=== PATIENT | female | born 1935 | race Caucasian/White ===

== ENCOUNTER 2016-10-21 18:46 | Emergency (ER) | payer OTHER ==
[~2016-10-21] VITALS: Ht 152.4 cm; Wt 115.8 kg
[~2016-10-21 18:46] MED LIST: ALEVE220 MG PO; CELECOXIB200 MG PO; CIPRO250 MG PO; COLCRYS0.6 MG PO; DOCUSATE SODIU100 MG PO; DOXYCYCLINE HY100 MG PO; FERROUS SULFAT325 MG PO; HYDROCODON-ACE1 EAC7 PO; LORTAB 5-325 M1 EACH PO; LOVENOX40 MG/0.4 SC; MECLIZINE HCL25 MG PO; MOTRIN600 MG PO; PAROXETINE HCL10 MG PO; PAXIL20 MG PO; SKELAXIN800 MG PO; SPIRONOLACTONE50 MG PO; VENTOLIN HFA18 GM IH
[2016-10-21] MEDS ORDERED: ACETAMINOPHEN500 MG PO (20:40)
[2016-10-21] MEDS ORDERED: MORPHINE SULFAT15 MG PO (20:40)
[2016-10-21 21:33] VITALS: BP 106/57
== END 2016-10-21 21:34 | disposition home or self-care (01) ==
LOC: EME 18:46
PROC: 2W3AX1Z Immobilization of Right Upper Arm using Splint (ICD-10-PCS; principal; 2016-10-21)
DX: S42.291A Other displaced fracture of upper end of right humerus, initial encounter for closed fracture (principal); W18.39XA Other fall on same level, initial encounter; W54.1XXA Struck by dog, initial encounter; G89.29 Other chronic pain; F32.9 Major depressive disorder, single episode, unspecified; G43.909 Migraine, unspecified, not intractable, without status migrainosus; K21.9 Gastro-esophageal reflux disease without esophagitis
CPT/HCPCS: 73030; 73060; 99281; 99285; J1885; J2270

== ENCOUNTER 2016-10-27 02:53 | Emergency (ER) | payer OTHER ==
[~2016-10-27] VITALS: Ht 152.4 cm; Wt 113.8 kg
[~2016-10-27 02:53] MED LIST changes: +ACETAMINOPHEN500 MG PO; +MORPHINE SULFAT15 MG PO
[2016-10-27 03:32] LABS: EOSINOPHIL COUNT 0.1 K/uL (0-0.3); HEMATOCRIT 36.6 % (36.0-46.0); IMMATURE GRANULOCYTE (%) 0.4 % (0.0-0.7); INSTRUMENT ABS NEUTROPHIL CT 6.1 K/uL; LYMPHOCYTE COUNT 0.7 K/uL (1.0-2.8); MCH 29.9 PG (29.0-34.0); MCHC 31.7 G/DL (30.0-36.0); MCV 94.3 FL (83-99); MEAN PLAT.VOLUME 9.9 uM^3 (9.5-12.4); MONOCYTE (%) 10.7 % (3-12); MONOCYTE COUNT 0.8 K/uL (0-0.8); NEUTROPHIL COUNT 6.1 K/uL (1.8-6.4); PLATELET COUNT 171 K/uL (156-360); RBC DIS.WIDTH-CV 14.2 % (11.8-14.6); RBC DIS.WIDTH-SD 48.6 % (39-53); RED BLOOD COUNT 3.88 M/uL (3.80-5.20); WHITE BLOOD COUNT 7.8 K/uL (4.1-10.2)
[2016-10-27 03:40] LABS: CHLORIDE 109 mEq/L (99-109); SODIUM 139 mEq/L (136-147)
[2016-10-27 03:41] LABS: GLUCOSE 147 mg/dL (70-99)
[2016-10-27 03:43] LABS: ANION GAP 10 MEQ/L (2-14)
[2016-10-27 03:45] LABS: GFR ESTIMATE (CALCULATED) 51 mL/min/
[2016-10-27 03:46] LABS: UREA NITROGEN (BUN) 21 mg/dL (9-23)
[2016-10-27] MEDS ORDERED: KADIAN10 MG PO (05:18)
[2016-10-27 05:47] VITALS: BP 100/58
== END 2016-10-27 05:50 | disposition home or self-care (01) ==
LOC: EME → EDBD 02:53 → EME 05:50
PROVIDERS: Emergency Medicine
DX: S70.00XA Contusion of unspecified hip, initial encounter (principal); S30.810A Abrasion of lower back and pelvis, initial encounter; S42.201D Unspecified fracture of upper end of right humerus, subsequent encounter for fracture with routine healing; W01.198A Fall on same level from slipping, tripping and stumbling with subsequent striking against other object, initial encounter; K21.9 Gastro-esophageal reflux disease without esophagitis
CPT/HCPCS: 72070; 72100; 73060; 73502; 80048; 85025; 99281; 99284; J2270; J7050